=== PATIENT | female | born 1975 | race Caucasian/White ===

== ENCOUNTER 2016-08-10 15:46 | Emergency (ER) | payer SELFPAY ==
[2016-08-10 15:56] VITALS: BP 121/70
[2016-08-10] MEDS ORDERED: ONDANSETRON 4 MG TAB.RAPDIS PO ONE (16:07)
[2016-08-10] MEDS ORDERED: ACETAMINOPHEN 325 MG TABLET PO ONE (16:07)
--- NOTE | 2016-08-10 16:07 | ER Document Report ---
ED Medical Screen (RME) - General Stated Complaint: HEADPAIN Time seen by provider: 16:04 Mode of Arrival: Ambulatory Information source: Patient Notes: 41 yo female presents to ed for worst headache she has every had. Her entire left side of her head hurt to include eye and behind her eyes for 2 weeks. getting worse - HPI Onset: Other - 2 weeks Onset/Duration: Intermittent, Worse Quality of pain: Pressure, Sharp Severity: Severe Pain Level: 5 Associated Symptoms: Earache, Headache Exacerbated by: Denies Relieved by: Denies Similar symptoms previously: No - headaches but not this bad Recently seen / treated by doctor: No - Related Data Smoking: Cigarettes - 1/2 ppd Frequency of alcohol use: None Drug Abuse: None Physical Exam - Vital signs Vitals: Temp Pulse Resp BP Pulse Ox 97.8 F 77 20 121/70 98 08/10/16 15:54 08/10/16 15:54 08/10/16 15:54 08/10/16 15:54 08/10/16 15:54 Course - Vital Signs Vital signs: Temp Pulse Resp BP Pulse Ox 97.8 F 77 20 121/70 98 08/10/16 15:54 08/10/16 15:54 08/10/16 15:54 08/10/16 15:54 08/10/16 15:54
== END 2016-08-10 19:10 | disposition left against medical advice (07) ==
LOC: ER 15:46
DX: Z53.9 Procedure and treatment not carried out, unspecified reason (principal); R51 Headache
CPT/HCPCS: 99281; S0119

== ENCOUNTER 2016-08-10 19:43 | Emergency (ER) | payer SELFPAY | END 2016-08-10 23:34 | disposition left against medical advice (07) | LOC: ER 19:43 | DX: Z53.9 Procedure and treatment not carried out, unspecified reason (principal); R51 Headache; H92.09 Otalgia, unspecified ear ==